=== PATIENT | male | born 1980 | race Caucasian/White ===

== ENCOUNTER 2021-02-26 19:42 | Emergency (ER) | payer BC, SELFPAY ==
--- NOTE | ~2021-02-26 | XR_ITS ---
EXAMINATION: XR forearm LT 2V DATE: 02/26/2021 20:43 INDICATION: Left forearm injury. TECHNIQUE: 2 views of left forearm were obtained. COMPARISON: None. FINDINGS: Bone alignment is normal. No fracture. Joint spaces are well maintained. There is no elbow joint effusion. There is soft tissue swelling of the forearm. IMPRESSION: 1. No fracture. Reviewed, dictated and finalized at location A. IMPRESSION: 1. No fracture.
--- NOTE | ~2021-02-26 | XR_ITS ---
EXAMINATION: XR hand LT min 3V DATE: 02/26/2021 20:42 INDICATION: Left hand injury. TECHNIQUE: 4 views of left hand were obtained. COMPARISON: None. FINDINGS: There is a comminuted intra-articular fracture of base of second middle phalanx. The main d istal fracture fragment demonstrates 1 mm ulnar displacement, impaction, and 25 degrees palmar angula tion. There is a comminuted intra-articular fracture of base of third middle phalanx. The main distal fracture fragment demonstrates impaction and 20 degrees palmar angulation. Joint spaces are normal. IMPRESSION: 1. Comminuted intra-articular fractures of the bases of the second and third middle phalanges. Reviewed, dictated and finalized at location A. IMPRESSION: 1. Comminuted intra-articular fractures of the bases of the second and third mi ddle phalanges.
[2021-02-26 20:00] VITALS: BP 165/102; PULSE 95; RESP 18; TEMP 36.1; O2SAT 97
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
[2021-02-26] MEDS: ceFAZolin SODIUM 1 GM VIAL IM (22:01)
[2021-02-26] MEDS: TETANUS,DIPHTHERIA,AC PERTUSSIS ADULT (0.5 ML) BOOSTRIX IM (22:02)
[2021-02-26] MEDS: fentaNYL CITRATE INJ (*CRX) 100 MCG/2 ML VIAL 50 MCG IM (22:18)
[2021-02-26 22:45] VITALS: BP 160/99; PULSE 80; RESP 16; O2SAT 99
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
[2021-02-27 00:34] VITALS: BP 159/88; PULSE 83; RESP 19; O2SAT 99
== END 2021-02-27 00:37 | disposition home or self-care (01) ==
PROVIDERS: Emergency Provider Emergency Medicine
DX: S62.621B Displaced fracture of middle phalanx of left index finger, initial encounter for open fracture (principal); S62.623B Displaced fracture of middle phalanx of left middle finger, initial encounter for open fracture; Z23 Encounter for immunization; V86.55XA Driver of 3- or 4- wheeled all-terrain vehicle (ATV) injured in nontraffic accident, initial encounter
CPT/HCPCS: 12002; 73090; 73130; 90471; 90715; 96372; 99284; J0690; J3010

== ENCOUNTER 2021-03-07 15:18 | Outpatient (CLI) | payer BC, SELFPAY ==
--- NOTE | ~2021-03-07 | CT_ITS ---
EXAMINATION: CT hand LT wo con DATE: 03/07/2021 16:09 INDICATION: Fractures of left hand second and third middle phalanges. TECHNIQUE: Computed tomography (CT) of the left hand was performed without intravenous contrast. Auto mated exposure control and iterative reconstruction technique were employed. The dose-length product was 575.40 mGy-cm. COMPARISON: Left hand radiographs 02/26/2021 FINDINGS: There is a nondisplaced fracture of the dorsal rim of distal radius at the lunate fossa. Th ere is a comminuted intra-articular fracture of the distal aspect of the capitate. There are small di splaced fracture fragments at the palmar aspect of the bone. There is a comminuted intra-articular fr acture of base of second middle phalanx. The main distal fracture fragment demonstrates impaction and 17 degrees palmar angulation. There is a comminuted intra-articular fracture of base of third middle phalanx. The main distal fracture fragment demonstrates 20 degrees palmar angulation. Joint spaces a re normal. IMPRESSION: 1. Nondisplaced fracture of the dorsal rim of distal radius at the lunate fossa. 2. Comminuted intra-articular fracture of distal capitate. 3. Comminuted intra-articular fracture of base of second middle phalanx. 4. Comminuted intra-articular fracture of base of third middle phalanx. Reviewed, dictated and finalized at location A. IMPRESSION: 1. Nondisplaced fracture of the dorsal rim of distal radius at the lunate fossa . 2. Comminuted intra-articular fracture of distal capitate. 3. Comminuted intra-articular fracture of base of second middle phalanx. 4. Comminuted intra-articular fracture of base of third middle phalanx.
== END 2021-03-07 15:19 | disposition home or self-care (01) ==
PROVIDERS: PCP Plastic Surgery; Visit Provider Plastic Surgery
DX: S62.621A Displaced fracture of middle phalanx of left index finger, initial encounter for closed fracture (principal); S62.623A Displaced fracture of middle phalanx of left middle finger, initial encounter for closed fracture; X58.XXXA Exposure to other specified factors, initial encounter
CPT/HCPCS: 73200

== ENCOUNTER → 2021-03-13 07:43 | Outpatient (CLI) | payer BC, SELFPAY ==
[2021-03-13 19:04] LABS: SARS-CoV-2 RNA PCR Negative
== END ==
PROVIDERS: Visit Provider Plastic Surgery
DX: Z01.812 Encounter for preprocedural laboratory examination (principal); Z20.822 Contact with and (suspected) exposure to COVID-19
CPT/HCPCS: C9803; U0003; U0005

== ENCOUNTER 2021-03-16 01:59 | Day surgery (SDC) | payer BC, SELFPAY ==
[2021-03-13 09:04] VITALS: BMI 30.8
[2021-03-16] VITALS (7 sets, daily range): BP systolic 115–150; BP diastolic 66–103; PULSE 65–101; RESP 12–20; TEMP 36.3–36.4; O2SAT 95–100
--- NOTE | ~2021-03-16 | XR_ITS ---
EXAMINATION: XR surgery orthopedic DATE: 03/16/2021 12:23 INDICATION: Closed reduction of left second and third metacarpal fractures TECHNIQUE: 7 fluoroscopic images of the second and third digits of the left hand were obtained during procedure performed by Dr. Welch. Radiologist was not present for the imaging or procedure. The [facility] nt of fluoroscopy time used during this procedure was 4.0 minutes. COMPARISON: CT dated 03/07/2021 FINDINGS: Interval closed reduction and percutaneous wire fixation of the comminuted intra-articular fracture a t the base of the left second and third middle phalanges. Alignment appears near-anatomic with no sig nificant fracture gap or incongruity evident at the articular surfaces. No other fractures identified . Joint spaces are normal. IMPRESSION: 1. Near-anatomic alignment post closed reduction and percutaneous wire fixation of comminuted intra-a rticular fractures at the base of the left second and third middle phalanges. Reviewed, dictated and finalized at location A. IMPRESSION: 1. Near-anatomic alignment post closed reduction and percutaneous wire fixation of comminuted intra-articular fractures at the base of the left second and thi rd middle phalanges.
--- NOTE | 2021-03-16 07:01 | WPDHPUPDATE1 ---
History and Physical Update Update Date/Time: 03/16/21 07:01 History and Physical has been reviewed, including an updated exam of the patient. There are NO changes in the patient's condition. Risks, benefits, and alternatives have been discussed and questions answered. Patient agrees to proceed with procedure.
[2021-03-16] MEDS: LACTATED RINGERS 1,000 ML 30 ML IV CONT ×2 (10:09→12:03)
--- NOTE | 2021-03-16 10:35 | WPDANESEPPF ---
Anes - Initial Pre Proc Eval Procedure: Operation Date: 03/16/21 11:30 Proposed Procedures p Closed, Possible Open Reduction Internal Fixation Left Second and Third Middle Phalangeal Base Fractures with [place] External Fixator or Other Fixator - Todd Welch MD Date/Time: 03/16/21 10:35 Surgeon: Todd Welch MD Pre Op Diagnosis: open fx left 2nd and 3rd phal at base Patient Data Age: 40 Gender: M Height: 5 ft 10 in Weight: 99.7 kg Last Vital Signs Temp 97.4 F L 03/16/21 10:20 Pulse 101 H 03/16/21 10:20 Resp 20 03/16/21 10:20 BP 144/89 H 03/16/21 10:20 Pulse Ox 100 03/16/21 10:20 Allergies Allergy/AdvReac Type Severity Reaction Status Date / Time No Known Allergies Allergy Verified 03/16/21 10:18 Home Medications Medication Instructions Recorded Confirmed Type cephalexin 500 mg PO Q6H 7 Days #28 cap 02/27/21 03/13/21 Rx oxycodone-acetaminophen 1 tablet PO Q6H PRN #14 tablet 02/27/21 03/13/21 Rx albuterol sulfate 1 puff INHALATION Q4-6H PRN 03/13/21 03/13/21 History famotidine 40 mg PO DAILY 03/13/21 03/13/21 History hydroxyzine HCl 10 mg PO DAILY 03/13/21 03/16/21 History Patient hx anesthesia problems: none Family hx anesthesia problems: none [facility] Past Medical History Medical History (Updated 03/16/21 @ 10:35 by Shan Taylor MD) Anxiety Asthma Social History Social History Years smoked: 12 Smoking status: Current every day smoker Tobacco type: cigarettes Alcohol intake: current Drinks per week: 2 Substance use: current Substance use type: marijuana Other substance usage details: FLOWER Last use: 03/13/21 Living arrangements: with family Gender identity (if verbalized by the patient): Male Spiritual care concerns: No Anes - Eval Final PreProcedure Day of Procedure 03/16/21 10:35 Patient weight: overweight Heart: regular rate and rhythm Lungs: clear to auscultation Airway: Mallampati scale class II Neurological: alert and oriented Last oral intake: >/= 8 hours ASA classification: II Emergent: no Anesthetic plan: proceed Anesthesia type and monitoring: general LMA and standard monitoring Informed Consent: The patient's anesthetic plan and its attendant risks and benefits were discussed with the patient/family/POA. Questions were solicited and answers provided to the satisfaction of the patient/family/POA.
[2021-03-16] MEDS: ceFAZolin 2 GM/D5W 50 ML 2 GM/50 ML BAG IVPB (10:44)
[2021-03-16] MEDS: LIDO 1%/EPINEPHRINE 1:100,000 50 ML VIAL INFILTRATE (11:19)
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
[2021-03-16] MEDS: oxyCODONE HCL (*CRX) 5 MG TAB IR PO (13:02)
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
== END 2021-03-16 13:35 | disposition home or self-care (01) ==
PROVIDERS: Visit Provider Plastic Surgery
PROC: (CPT 26727; principal; 2021-03-16 11:30)
DX: S62.623A Displaced fracture of middle phalanx of left middle finger, initial encounter for closed fracture (principal); S62.620A Displaced fracture of middle phalanx of right index finger, initial encounter for closed fracture; V86.55XA Driver of 3- or 4- wheeled all-terrain vehicle (ATV) injured in nontraffic accident, initial encounter; J45.909 Unspecified asthma, uncomplicated; F41.9 Anxiety disorder, unspecified; Z79.51 Long term (current) use of inhaled steroids; F17.210 Nicotine dependence, cigarettes, uncomplicated; F12.90 Cannabis use, unspecified, uncomplicated
CPT/HCPCS: 26727 ×2; A9270; C1713; J0690; J1100; J1170; J2250; J2405; J2704; J3010; J7120

== ENCOUNTER 2021-04-10 08:43 | Outpatient (CLI) | payer BC, SELFPAY ==
--- NOTE | ~2021-04-10 | XR_ITS ---
XR hand LT min 3V DATE: 04/10/2021 08:56 INDICATION: Fractures of left second and third digits TECHNIQUE: 3 views of left hand COMPARISON: 02/26/2021 left hand FINDINGS: There is an obliquely oriented distal and medially directed K wire through the lateral base of the middle phalanx of the second digit, terminating at the lateral aspect of the head of the midd le phalanx. There is approximately one cortical width lateral displacement of the distal fragment of the comminuted intra-articular fracture of the base of the middle phalanx of the second digit. There is a transverse fracture extending laterally through the base of the middle phalanx of the thir d digit and an obliquely oriented K wire extending through the medial base of the middle phalanx, ter minating in the lateral head of the middle phalanx, providing virtually anatomic position and alignme nt at the comminuted ventricular fracture of the base of the middle phalanx of the third digit. No other recent fracture or dislocation is detected. IMPRESSION: K wire fixation of comminuted intra-articular fractures of the bases of the middle phalan ges of the second and third digits Reviewed, dictated and finalized at location A. IMPRESSION: K wire fixation of comminuted intra-articular fractures of the base s of the middle phalanges of the second and third digits
== END 2021-04-10 08:44 | disposition home or self-care (01) ==
PROVIDERS: Visit Provider Plastic Surgery
DX: S62.621A Displaced fracture of middle phalanx of left index finger, initial encounter for closed fracture (principal); S62.623A Displaced fracture of middle phalanx of left middle finger, initial encounter for closed fracture; S62.132A Displaced fracture of capitate [os magnum] bone, left wrist, initial encounter for closed fracture
CPT/HCPCS: 73130

== ENCOUNTER 2021-05-26 07:30 | Outpatient (RCR) | payer BC, SELFPAY ==
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
--- NOTE | 2021-05-11 09:29 | PCOTNOTE ---
Patient did not show up for scheduled appointment this date. Called patient and left voicemail informing of missed appt. Patient called back and said he had to work and forgot about his appt. Moved re-eval to Saturday.
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
--- NOTE | 2021-05-18 15:52 | PCOTNOTE ---
Late note for 05/17: Patient did not show up for scheduled appointment this date. Called patient today and he stated he worked late and was unable to make it. Reminded him of Saturday's appt.
--- NOTE | 2021-06-02 08:12 | PCOTNOTE ---
OCCUPATIONAL THERAPY DISCHARGE NOTE 06/02/21 Patient:Flavio Salazar Date of :1980 Patient has not returned for any further treatments since 05/26/2021, therefore he will be discharged at this time. Called the patient today and he stated that he started a new job and will be unable to continue therapy at this time. Patient?s initial visit was on 04/04/2021 and he had a total of 11 visits. Please refer to most recent progress note from 05/15/21 for latest update. The goals have been partially met. The patient is independent with HEPs to continue to work on ROM and strength of the left hand. Thank you for referring this patient to [facility]. Please review, sign, date and return this discharge summary LEONARDO. I have been updated about the patient's current status and I agree with discharge from the above service at this time. Referring Physician Date Referring Provider: Todd Welch MD
== END 2021-06-08 16:55 | disposition home or self-care (01) ==
LOC: ANHOT 07:30
PROVIDERS: Visit Provider Plastic Surgery
DX: Z47.89 Encounter for other orthopedic aftercare (principal)
CPT/HCPCS: 97018; 97035; 97110; 97140; 97166

== ENCOUNTER 2023-03-14 11:38 | Emergency (ER) | payer BC, SELFPAY ==
--- NOTE | 2023-03-14 11:44 | ED.URI ---
HPI - URI/Sore Throat General Chief Complaint: Upper Respiratory Infection Stated Complaint: Cough/Sinus Time Seen by Provider: 03/14/23 11:51 Source: patient, RN notes reviewed and old records reviewed Mode of arrival: ambulatory Limitations: no limitations History of Present Illness HPI Narrative: 42-year-old year old male presents to the [facility] with complaints body aches, sinus congestion for 2 days. [place] feverish yesterday and took some if acetaminophen. Denies any chest pain, abdominal pain. No nausea or vomiting. Denies a sore throat MD elicited complaint: fever (Subjective) and nasal congestion Related Data Home Medications Medication Instructions Recorded Confirmed No Home Medications 03/14/23 03/14/23 Allergies Allergy/AdvReac Type Severity Reaction Status Date / Time No Known Allergies Allergy Verified 03/14/23 11:41 Review of Systems Review of Systems: All systems reviewed & are unremarkable except as noted in HPI and below Constitutional: Constitutional: Reports as per HPI Eyes: Eyes: Reports no additional eye complaints ENT: Reports as per HPI Cardiovascular: Cardiovascular: Reports no additional cardiovascular complaints, Denies chest pain and Denies dyspnea Respiratory: Respiratory: Reports no additional respiratory complaints, Denies chest congestion, Denies cough and Denies dyspnea Gastrointestinal: Gastrointestinal: Reports no additional gastrointestinal complaints, Denies abdominal pain, Denies nausea and Denies vomiting Musculoskeletal: Musculoskeletal: Reports no additional musculoskeletal complaints Integumentary/Breasts: Skin/Breast: Reports system reviewed and no additional complaints, except as docu Neurologic: Reports system reviewed and no additional complaints, except as documented Psychiatric: Psychiatric: Reports no additional psychiatric complaints Allergic/Immunologic: Allergic/Immunologic: Reports no additional allergic/immunologic complaints [facility] Past Medical History Medical History (Updated 03/15/23 @ 07:51 by Janice Garcia APRN) Anxiety Asthma Social History Social History Years smoked: 12 Smoking status: Current every day smoker Tobacco type: cigarettes Alcohol intake: current Drinks per week: 2 Substance use: current Substance use type: marijuana Other substance usage details: FLOWER Last use: 03/13/21 Living arrangements: with family Gender identity (if verbalized by the patient): Male Spiritual care concerns: No Comments At the time of my signature, I reviewed and agree with the nursing past medical, surgical, social, and family history. There is no relevant family history pertinent to the patient complaint. Exam Const: General: cooperative, healthy appearing, comfortable, no acute distress, well developed, alert and well nourished Nutritional Appearance: well nourished Orientation/consciousness: patient oriented x3 Limitations: no limitations HENMT: Head: normal to inspection Ears: hearing grossly normal bilaterally and external ears normal Face/Nose/Sinus: Normal external nose present, Normal nares present, Normal nasal mucous membranes and turbinates present and normal facial exam Face and sinus: normal facial exam Mouth: Yes Normal oral and palatal mucosa present, Yes lip normal and Yes moist mucous membranes Throat: posterior oropharynx normal, uvula midline and postnasal drainage Eyes: General: appearance normal, both eyes and all related structures Alignment and Position: alignment normal Periorbital: periorbital findings normal Conjunctivae: conjunctivae normal Pupils: Equal, round and reactive pupils present EOM: EOMs intact bilaterally Neck: Neck: normal visual inspection, full ROM, no lymphadenopathy and no meningeal signs Chest: Chest palpation & inspection: normal inspection of the chest Resp: Effort & Inspection: normal respiratory effort an
[2023-03-14 11:51] VITALS: BP 146/88; PULSE 67; RESP 16; TEMP 36.3; O2SAT 100
== END 2023-03-14 12:05 | disposition home or self-care (01) ==
PROVIDERS: Emergency Provider Nurse Practitioner
DX: J06.9 Acute upper respiratory infection, unspecified (principal); F17.210 Nicotine dependence, cigarettes, uncomplicated
CPT/HCPCS: 87804; 99211; G0463

== ENCOUNTER 2023-04-17 13:08 | Emergency (ER) | payer BC, SELFPAY ==
[2023-04-17 13:17] VITALS: BP 148/114; PULSE 93; RESP 16; TEMP 37.3; O2SAT 99
--- NOTE | 2023-04-17 13:56 | ED.URI ---
HPI - URI/Sore Throat General Chief Complaint: Upper Respiratory Infection Stated Complaint: Sore Throat Time Seen by Provider: 04/17/23 13:49 Source: patient and RN notes reviewed Mode of arrival: ambulatory Limitations: no limitations History of Present Illness HPI Narrative: 42-year-old male presents with concern for strep throat. Reports chills, body aches, hot flashes, sore throat, cough, nasal congestion, nausea for 2 days. Reports his had similar symptoms and is on an antibiotic. MD elicited complaint: sore throat Related Data Home Medications Medication Instructions Recorded Confirmed loratadine 10 mg tablet (Claritin) 10 mg PO DAILY 04/17/23 04/17/23 multivitamin with minerals-folic 1 tablet PO DAILY 04/17/23 04/17/23 acid 12 mcg chewable tablet (Centrum Adults) Allergies Allergy/AdvReac Type Severity Reaction Status Date / Time No Known Allergies Allergy Verified 04/17/23 13:23 Review of Systems Review of Systems: CONSTITUTIONAL: Reports malaise, chills, sweats EYES: Denies visual changes, redness, or discharge. ENT: Reports rhinorrhea, congestion, and sore throat. CARDIOVASCULAR: Denies chest pain, palpitations, or edema. RESPIRATORY: Reports cough. Denies dyspnea. GASTROINTESTINAL: Denies abdominal pain, vomiting, diarrhea. Reports nausea SKIN: Denies rash or itching. MUSCULOSKELETAL: Reports myalgia. NEUROLOGIC: Denies headache. All systems reviewed & are unremarkable except as noted in HPI and below PMFSH Past Medical History Medical History (Updated 04/17/23 @ 13:57 by Janice Frederick NP) Anxiety Asthma Social History Social History Years smoked: 12 Smoking status: Current every day smoker Tobacco type: cigarettes Alcohol intake: current Drinks per week: 2 Substance use: current Substance use type: marijuana Other substance usage details: FLOWER Last use: 03/13/21 Living arrangements: with family Gender identity (if verbalized by the patient): Male Spiritual care concerns: No Comments At time of signature, agree with nursing past medical, surgical, social and family history. There is no relevant family history pertinent to the presenting complaint Exam Narrative: GENERAL: Nontoxic-appearing and in no acute distress. HEAD: Normocephalic EYES: PERRLA, conjunctivae clear ENT: Nares clear, turbinates edematous and erythematous, clear discharge. Mucous membranes moist. TM pearly olvera with dull light reflex bilaterally; no tragal tenderness. Oropharynx erythematous without lesions. Tonsils enlarged with exudate, no drooling, no hoarseness, no trismus, uvula midline. NECK: Supple. No lymphadenopathy CHEST: Clear to auscultation, breath sounds equal. No wheezing, rhonchi, rales, or stridor. No respiratory distress, speaks in full sentences. HEART: Regular rate and rhythm. No murmur heard. SKIN: Warm, dry, no rash. NEURO: Alert and oriented x3. PSYCH: Normal mood and affect Course Course Emergency Course: Patient is aware of diagnosis, understands and agrees to treatment plan. Anticipatory guidance given. Patient agrees to follow-up as directed and is aware of reasons to seek care at the emergency department. Portions of this record may have been created with voice recognition software Level of Care: Express Care Visit Vital Signs Vital signs: Vital Signs Temperature 99.2 F 04/17/23 13:17 Pulse Rate 93 04/17/23 13:17 Respiratory Rate 16 04/17/23 13:17 Blood Pressure 148/114 H 04/17/23 13:17 Pulse Oximetry 99 04/17/23 13:17 Oxygen Delivery Room Air 04/17/23 13:17 Temperature 99.2 F 04/17/23 13:17 Pulse Rate 93 04/17/23 13:17 Respiratory Rate 16 04/17/23 13:17 Blood Pressure 148/114 H 04/17/23 13:17 Pulse Oximetry 99 04/17/23 13:17 Oxygen Delivery Room Air 04/17/23 13:17 Reviewed. MDM - URI/Sore Throat MDM Narrative Medical decisio
== END 2023-04-17 14:09 | disposition home or self-care (01) ==
PROVIDERS: Emergency Provider Nurse Practitioner; PCP Registered Nurse
DX: J02.0 Streptococcal pharyngitis (principal); F17.210 Nicotine dependence, cigarettes, uncomplicated; J45.909 Unspecified asthma, uncomplicated
CPT/HCPCS: 87880; 99213; G0463

== ENCOUNTER 2023-11-24 14:52 | Emergency (ER) | payer BC, SELFPAY ==
--- NOTE | 2023-11-24 14:58 | ED.BACK ---
HPI - Back Pain/Injury General Chief Complaint: Back Pain/Injury Stated Complaint: back pain Time Seen by Provider: 11/24/23 14:58 Source: patient Mode of arrival: ambulatory Limitations: no limitations History of Present Illness HPI Narrative: Flavio is a 43-year-old male patient presenting to the clinic today with complaints of back pain x1 day. He reports he hurt his back when he was working out today. States he was doing of [employer] lift when he 1st injured his back. States he did some stretching and worked out his upper back muscles and his lower back seem to be better so he then did another low back exercise that pulled his back again. He reports he feels as though his back is having spasms. States he feels as though the injury is muscular in nature. Patient is asking for a work note as he did call into work today. Related Data Home Medications Medication Instructions Recorded Confirmed loratadine 10 mg tablet (Claritin) 10 mg PO DAILY 04/17/23 04/17/23 multivitamin with minerals-folic 1 tablet PO DAILY 04/17/23 04/17/23 acid 12 mcg chewable tablet (Centrum Adults) Allergies Allergy/AdvReac Type Severity Reaction Status Date / Time No Known Allergies Allergy Verified 11/24/23 15:08 Review of Systems Review of Systems: Pertinent positives per HPI. Patient denies any fever, chills, rash, headache, visual changes, dizziness, cough, runny nose, sore throat, shortness of breath, chest pain, palpitations, nausea, vomiting, diarrhea, constipation, abdominal pain, or any urinary issues. [facility] Past Medical History Medical History Anxiety Asthma Social History Social History Years smoked: 12 Smoking status: Current every day smoker Tobacco type: cigarettes Alcohol intake: current Drinks per week: 2 Substance use: current Substance use type: marijuana Other substance usage details: FLOWER Last use: 03/13/21 Living arrangements: with family Gender identity (if verbalized by the patient): Male Spiritual care concerns: No Comments At the time of my signature, I reviewed and agree with the nursing past medical, surgical, social, and family history. There is no relevant family history pertinent to the patient complaint. Exam Narrative: General: Well-developed, well nourished, in no apparent distress Head: Normocephalic, atraumatic. Cardio: Regular rate and rhythm, s1 and s2 normal, no murmur appreciated. Resp: Clear to auscultation bilaterally, no rhonchi, rales, wheezing or rubs. Musculoskeletal: No deformity, tender to palpation over the lumbar spine/paraspinous muscles, mild discomfort with straight leg test at 60? bilaterally, patellar reflexes 2+, pain when flexing and extending the back. Negative foot drop, grossly normal range of motion, muscle strength strong and equal, peripheral pulse strong, no edema, no cyanosis, normal gait and station Course Course Emergency Course: Portions of this record may have been created with voice recognition software. Level of Care: Express Care Visit Vital Signs Vital signs: Vital signs reviewed MDM - Back Pain/Injury MDM Narrative Medical decision making narrative: At the time of visit patient is resting comfortably on the exam table. Patient appears to be nontoxic. I suspect patient has lumbar strain. Prescription for naproxen and Flexeril was sent to pharmacy. Work note was given. Supportive measures were discussed with the patient and they voiced understanding discharge instructions and agrees to treatment plan. Return precautions reviewed Differential Diagnosis Differential diagnosis: Likely lumbar radiculopathy, sciatica, strain of lumbar region, discitis and other (Disc rupture) Discharge Plan Discharge Clinical Impression: Strain of lumbar region Qualifiers: Encounter type: initial encou
[2023-11-24 15:17] VITALS: BP 132/80; PULSE 65; RESP 18; TEMP 37.5; O2SAT 100
== END 2023-11-24 15:35 | disposition home or self-care (01) ==
PROVIDERS: Emergency Provider Nurse Practitioner Family; PCP Registered Nurse
DX: S39.012A Strain of muscle, fascia and tendon of lower back, initial encounter (principal); F17.210 Nicotine dependence, cigarettes, uncomplicated; X50.0XXA Overexertion from strenuous movement or load, initial encounter
CPT/HCPCS: 99213; G0463

== ENCOUNTER 2024-08-24 11:10 | Outpatient (CLI) | payer BC, SELFPAY ==
--- NOTE | ~2024-08-24 | MR_ITS ---
MRI of the lumbar spine Clinical History: Back pain, radiculopathy Technique: Axial T2-weighted images, and sagittal T1-weighted, T2-weighted, and and T2 fat-sat images were acquired. Findings: There is no fracture or subluxation of lumbar spine. Vertebral bodies maintain normal heigh t and alignment. No bone marrow signal abnormality seen. At L1-L2, L3, L3-L4, intervertebral discs maintain normal signal and position. No disc bulge or herni ation T levels. No spinal canal stenosis or neuroforaminal, as these levels. At L4-L5, there is mild disc desiccation with mild posterior disc bulge/protrusion. No erik spinal c anal stenosis or neural foraminal narrowing. At L5-S1, there is no disc bulge or herniation. No spinal canal stenosis or neural foraminal narrowin g. Impression: Disc protrusion/bulge at L4-L5, without canal stenosis or neural foraminal narrowing. Reviewed, dictated and finalized at location . Impression: Disc protrusion/bulge at L4-L5, without canal stenosis or neural foraminal narr owing.
== END 2024-08-24 11:11 | disposition home or self-care (01) ==
PROVIDERS: PCP Registered Nurse; Visit Provider Registered Nurse
DX: M51.26 Other intervertebral disc displacement, lumbar region (principal)
CPT/HCPCS: 72148